=== PATIENT | female | born 1970 | race Caucasian/White ===

== ENCOUNTER → 2019-02-24 | Outpatient (CLI) | payer OTHER ==
--- NOTE | 2019-02-24 11:05 | EST ---
EXERCISE STRESS AGE: 48 SEX: F HT: 5'6" WT: 170 PROTOCOL: Arnaldo Stress Test STAGE: III DURATION OF EXERCISE: 10:05 HEART RATE REST: 77 BLOOD PRESSURE REST: 104/81 MAXIMUM HEART RATE ACHIEVED: 146 MAXIMUM BLOOD PRESSURE: 183/83 85% MPHR: 146 100% MPHR: 172 METS: 11.5 INDICATIONS: Chest pain, fatigue. CLINICAL INFORMATION: Baseline heart rate 77 beats per minute. Baseline blood pressure 104/81 mmHg. Baseline 12-lead ECG shows normal sinus rhythm with normal cardiac intervals. Patient exercised on a Arnaldo protocol for 10 minutes 5 seconds achieving a peak heart rate of 146 beats per minute. Normal blood pressure response to exercise. There was no ECG evidence for ischemia. No arrhythmias noted. IMPRESSION: 1. Good exercise capacity. 2. Normal heart rate and blood pressure response to exercise. 3. No ECG evidence for ischemia. No arrhythmias. MMODL / IJN: [id number] /
== END ==
LOC: RADNMMAIN 08:00
PROVIDERS: ATTEND Family Medicine
DX: R07.9 Chest pain, unspecified (principal); R53.83 Other fatigue; Z82.49 Family history of ischemic heart disease and other diseases of the circulatory system; Z88.0 Allergy status to penicillin
CPT/HCPCS: 93017

== ENCOUNTER → 2021-07-09 | Outpatient (CLI) | payer BC ==
--- NOTE | 2021-07-14 12:33 | MM ---
Reason for exam: screening (asymptomatic). Last mammogram was performed 3 years and 9 months ago. History: Family history of breast cancer in paternal cousin at age 40. Physical Findings: A clinical breast exam by your physician is recommended on an annual basis and results should be correlated with mammographic findings. MG Screening Mammo w CAD Bilateral CC and MLO view(s) were taken. Prior study comparison: September 24, 2017, mammogram, performed at [facility]. The breast tissue is heterogeneously dense. This may lower the sensitivity of mammography. Finding: There is a 9 mm obscured oval mass in the inner quadrant, middle, postererior position of the left breast on CC view only. New finding since September 24, 2017. ASSESSMENT: Incomplete: need additional imaging evaluation, BI-RAD 0 RECOMMENDATION: Special view mammogram of the left breast. If lesion persists on supplemental views, image directed ultrasound is recommended. [facility] will attempt to contact patient to return for supplemental views and ultrasound if indicated.
== END | disposition home or self-care (01) ==
LOC: RADMAMWWP 15:48
PROVIDERS: ATTEND Family Medicine
DX: Z12.31 Encounter for screening mammogram for malignant neoplasm of breast (principal); Z80.3 Family history of malignant neoplasm of breast
CPT/HCPCS: 77067

== ENCOUNTER → 2021-07-16 | Outpatient (CLI) | payer BC ==
--- NOTE | 2021-07-16 10:28 | MM ---
Reason for exam: additional evaluation requested from abnormal screening. Last mammogram was performed less than 1 month ago. History: Family history of breast cancer in paternal cousin at age 40. Physical Findings: Nurse did not find any significant physical abnormalities on exam. MG Work Up Mamm w CAD LT Spot compression CC, spot compression MLO, and ML view(s) were taken of the left breast. Prior study comparison: July 09, 2021, bilateral MG screening mammo w CAD. September 24, 2017, mammogram, performed at [facility]. The breast tissue is heterogeneously dense. This may lower the sensitivity of mammography. The medial asymmetric density seems to disperse on spot view. Asymmetric density inferior posterior on the lateral view. 5mm superior periareolar nodular asymmetry has no CC or lateral correlate. These results were verbally communicated with the patient and result sheet given to the patient on 07/16/21. ASSESSMENT: Incomplete: need additional imaging evaluation, BI-RAD 0 RECOMMENDATION: Ultrasound of the left breast.
--- NOTE | 2021-07-16 10:32 | USB ---
Reason for exam: additional evaluation requested from abnormal screening. History: Family history of breast cancer in paternal cousin at age 40. US Breast Workup Limited LT Technologist: Renetta Mccoy Left limited breast ultrasound including focal area of concern, retroareolar and axilla demonstrates a 0.5 x 0.4 x 0.3cm cystic lesion at 6 o'clock, a 0.6 x 0.6 x 0.4cm cystic cluster at 6 o'clock, a 0.8 x 0.8 x 0.4cm mixed lesion at 6 o'clock, possible cyst with debris or complex cyst, 6 month follow up recommended, a 0.6 x 0.4 x 0.3cm cystic lesion at 11 o'clock, a 0.5 x 0.6 x 0.3cm cystic lesion at 11 o'clock, a 0.5 x 0.6 x 0.4cm cystic cluster at the nipple and a 0.7 x 0.6 x 0.3cm hypoechoic area in a patch of dense tissue at 8 o'clock, 6 month follow up recommended. Left lower inner quadrant and superior areolar zone A scanned. These results were verbally communicated with the patient and result sheet given to the patient on 07/16/21. ASSESSMENT: Probably benign, BI-RAD 3 RECOMMENDATION: Follow-up diagnostic mammogram and ultrasound of the left breast in 6 months.
== END | disposition home or self-care (01) ==
LOC: RADMAMWWP 07:02
PROVIDERS: ATTEND Family Medicine
DX: R92.8 Other abnormal and inconclusive findings on diagnostic imaging of breast (principal); Z80.3 Family history of malignant neoplasm of breast
CPT/HCPCS: 77065

== ENCOUNTER → 2022-07-01 | Outpatient (CLI) | payer BC ==
--- NOTE | 2022-07-01 09:11 | MM ---
Reason for Exam: Follow-up at short interval from prior study. Last screening mammogram was performed 12 month(s) ago. Patient History: Menarche at age 16. First Full-Term at age 23. Patient has history of breast feeding. Paternal cousin had breast cancer, age 40. Last menstrual period: 06/10/2022 Risk Values: Mignon 5 year model risk: 0.8%. NCI Lifetime model risk: 7.2%. Prior Study Comparison: 09/24/2017 Screening Mammogram, [facility]. 07/09/2021 Bilateral Screening Mammogram, [facility]. 07/16/2021 Left Diagnostic Mammogram, [facility]. Tissue Density: The breast tissue is extremely dense which could obscure a lesion on mammography. Findings: Analyzed By CAD. Findings appears symmetrical and stable. No significant interval change is evident. No suspicious groups of microcalcifications, spiculated or lobular masses, architectural distortion or other secondary signs of malignancy are mammographically apparent. Overall Assessment: Benign, BI-RAD 2 Management: Screening Mammogram of both breasts in 1 year. A negative mammogram report should not preclude additional follow up of suspicious palpable abnormalities. Patient should continue monthly self breast exam. A clinical breast exam by your physician is recommended on an annual basis and results should be correlated with mammographic findings. Electronically signed and approved by: Adolfo Garcia D.O. Radiologis
--- NOTE | 2022-07-01 09:34 | USB ---
Patient History: Menarche at age 16. First Full-Term at age 23. Patient has history of breast feeding. Paternal cousin had breast cancer, age 40. Risk Values: Mignon 5 year model risk: 0.8%. NCI Lifetime model risk: 7.2%. Technique: Method: Targeted. Prior Study Comparison: 09/24/2017 Screening Mammogram, [facility]. 07/09/2021 Bilateral Screening Mammogram, [facility]. 07/16/2021 Left Diagnostic Mammogram, [facility]. Findings: The medial section of the breast of the left breast, the axilla of the left breast and the retroareolar of the left breast were scanned. There is a 0.6 x 0.4 x 0.8 cm para cysts at the 6:00 position 2 cm from the nipple. This is stable from comparison. The complex cystic area at the 6:00 position 5 cm the nipple measures 0.8 x 0.3 x 0.8 cm and is stable from comparison. There is a complex 1.1 x 0.5 x 0.9 cm area 3 cm from the nipple 12:00 position. This may be new. Short-term follow-up in 6 months is recommended. At the 8:00 position zone A there was a hypoechoic area previously identified. No suspicious abnormality in this region is identified on the current examination. Overall Assessment: Probably benign, BI-RAD 3 Management: Diagnostic Breast Ultrasound of the right breast in 6 months. A clinical breast exam by your physician is recommended on an annual basis and results should be correlated with mammographic findings. This exam should not preclude additional follow-up of suspicious palpable abnormalities. Results were given to the patient verbally at the time of exam. Electronically signed and approved by: Adolfo Garcia D.O. Radiologis
== END | disposition home or self-care (01) ==
LOC: RADMAMWWP 08:23
PROVIDERS: ATTEND Family Medicine
DX: R92.8 Other abnormal and inconclusive findings on diagnostic imaging of breast (principal); Z80.3 Family history of malignant neoplasm of breast
CPT/HCPCS: 77066

== ENCOUNTER → 2024-03-17 | Outpatient (CLI) | payer OTHER ==
--- NOTE | 2024-03-17 13:41 | US ---
EXAMINATION TYPE: US pelvis complete transvag DATE OF EXAM: 03/17/2024 COMPARISON: NONE CLINICAL INDICATION: Female, 53 years old with history of R10.2 PAIN Z12.31 Screening mammogram; Abno rmal menses TECHNIQUE: Transvaginal (TV) and Transabdominal (TA) . EXAM MEASUREMENTS: Uterus: 9.8 x 4.3 x 6.2 cm Endometrial Stripe: .9 cm Right Ovary: 3.1 x 2.3 x 2.3 cm 1. Uterus: Anteverted and otherwise wnl. Tiny 5 mm cervical nabothian cyst. 2. Endometrium: wnl 3. Right Ovary: Cystic area seen 1.8 x 1.9 x 1.5 cm 4. Left Ovary: Obscured by overlying bowel gas 5. Bilateral Adnexa: wnl 6. Posterior cul-de-sac: wnl IMPRESSION: 1. Correlate with patient's menopausal status. Current endometrial stripe thickness is 9 mm. Postmeno pausal female should have thinner endometrium. Follow-up as clinically indicated. 2. A 1.9 cm cyst of the right ovary. Normal if premenopausal. Follow-up in 6-8 weeks to reassess if p ost menopausal. 3. Unable to visualize the left ovary.
--- NOTE | 2024-03-19 11:19 | MM ---
Reason for Exam: Screening (asymptomatic). Last mammogram was performed 1 year(s) and 9 month(s) ago. Patient History: Menarche at age 16. First Full-Term at age 23. Patient has history of breast feeding. Paternal cousin had breast cancer, age 40. Risk Values: Mignon 5 year model risk: 0.9%. NCI Lifetime model risk: 7.0%. Prior Study Comparison: 07/09/2021 Bilateral Screening Mammogram, [facility]. 07/16/2021 Left Diagnostic Mammogram, [facility]. 07/01/2022 Bilateral MG diagnostic mammo w CAD [facility], [facility]. Tissue Density: The breasts are heterogeneously dense, which may obscure small masses. Findings: Analyzed By CAD. Right breast: There is no suspicious group of microcalcifications or new suspicious mass. Left breast: There is no suspicious group of microcalcifications or new suspicious mass. Overall Assessment: Negative, BI-RAD 1 Management: Screening Mammogram of both breasts in [address] [facility] will attempt to contact patient to return for supplemental views and ultrasound if indicated. Patient should continue monthly self-breast exams. A clinical breast exam by your physician is recommended on an annual basis. This exam should not preclude additional follow-up of suspicious palpable abnormalities. Note on Mignon scores and lifetime risk: 1. A Mignon score greater than 3% is considered moderate risk. If this is the case, consider specialist referral to assess eligibility for a risk reducing agent. 2. If overall lifetime risk for the development of breast cancer is 20% or higher, the patient may qualify for future screening with alternating mammogram and breast MRI. Electronically signed and approved by: Tolu Liang DO
== END | disposition home or self-care (01) ==
LOC: RADUSWWP 07:31
PROVIDERS: ATTEND Family Medicine
DX: Z12.31 Encounter for screening mammogram for malignant neoplasm of breast (principal); R10.2 Pelvic and perineal pain; Z78.0 Asymptomatic menopausal state; N83.201 Unspecified ovarian cyst, right side; R92.333 Mammographic heterogeneous density, bilateral breasts; Z80.3 Family history of malignant neoplasm of breast
CPT/HCPCS: 76830; 76856; 77063; 77067